=== PATIENT | male | born 2005 | race Caucasian/White ===

== ENCOUNTER 2024-05-25 18:21 | Emergency (ER) | payer BC, SELFPAY ==
[2024-05-25 18:21] VITALS: BP 129/93; PULSE 60; RESP 14; TEMP 36.2; O2SAT 97; BMI 26.6
[2024-05-25 18:27] VITALS: O2SAT 98
--- NOTE | 2024-05-25 18:37 | EDS_ITS ---
HPI History of Present Illness Chief Complaint: Head Injury Detail of Chief Complaint: Head injury Informant: patient Narrative Narrative: Patient presents to the emergency department concerned about head injury. Patient states that he was playing basketball 2 weeks ago and took a shoulder to the head while playing. Did not have loss of consciousness. Did not think much of it. He continued to play. Patient then 10 days ago was playing basketball again with another individual and was elbowed in the head. No again no loss of consciousness. Subsequently started having some symptoms of some trouble concentrating. Last night he had a hard time sleeping. Complains of some photophobia. Patient just states that something feels off and he does not feel right. Has had no vomiting. Patient was seen by his primary care physician yesterday and was told that he may have concussion. No imaging is been performed. [facility] Medications ?Medication ?Instructions ?Recorded ?Last Taken ?Type pediatric multivitamin no.42 1 ea PO DAILY 04/17/14 Unknown History (Children's Multivitamin chewable tablet) Allergy/AdvReac Type Severity Reaction Status Date / Time No Known Allergies Allergy Verified 05/25/24 18:22 Social History Smoking Status: Never smoker ROS ROS ED ROS Narrative Head injury Review of Systems ROS Unobtainable: other Constitutional Constitutional ED: Reports lethargy; Denies chills, fever(s), sweats or weight loss Eyes Eyes: Denies blurry vision, change in vision or diplopia ENT ENT ED: Denies rhinorrhea or sore throat Cardiovascular Cardiovascular: Denies chest pain, orthopnea or racing heartbeat Respiratory/Chest Respiratory/Chest: Denies cough, dyspnea, dyspnea on exertion, orthopnea or sputum Gastrointestinal Gastrointestinal: Denies abdominal pain, diarrhea, nausea or vomiting Genitourinary Genitourinary ED: Denies dysuria, hematuria or urinary frequency Musculoskeletal Musculoskeletal: Denies arthralgias, back pain, myalgias or neck pain Integumentary Denies abscess, Abrasions or rash Neurologic Neurologic: Reports headache(s); Denies weakness Psychiatric Psychiatric: Denies anxiety, depression or suicidal thoughts Endocrine Endocrinology: Denies polydipsia, polyphagia or polyuria Hematologic/Lymphatic Hematologic/Lymphatic: Denies easy bleeding, easy bruising or lymphadenopathy Allergic/Immunologic Allergic/Immunologic ED: Denies mouth swelling, tongue swelling or urticaria EXAM Physical Exam Const Vital Signs: 05/25/24 18:21 05/25/24 18:27 Temperature 97.2 F L Temperature Source Temporal Pulse Rate 60 Respiratory Rate 14 Respiratory Effort Normal Respiratory Depth Normal Blood Pressure 129/93 H Blood Pressure Mean 105 Pulse Ox 97 98 Oxygen Delivery Method Room Air Room Air Positive well nourished and well developed General Appearance ED: well developed and NAD HEENT Reports TM's clear and moist mucous membranes normocephalic and atraumatic; Negative for trauma or tenderness Tympanic Membrane ED: Yes TM's clear Eyes PERRL and EOMs intact bilaterally General Eye ED: Negative for pale conjunctiva or scleral icterus Neck no lymphadenopathy, supple and no JVD General: Negative for tenderness Chest Wall inspection of chest normal and palpation of chest normal Chest: Negative for tenderness Resp normal respiratory effort and clear to auscultation bilaterally Effort and Inspection: Negative for respiratory distress or pain with movement Auscultation: Negative for rhonchi, wheezes or diminished lung sounds Cardio regular rate, regular rhythm, S1 normal heart sound, S2 normal heart sound and no murmurs Peripheral Pulses: pulses 2+ throughout GI normal to inspection, nondistended, normoactive bowel sounds, soft to palpation, non-tender, non-distended and no masses Back/Spine no CVA tenderness and no thoracic nor lumbar tenderness Extremity normal to inspection General Extremety ED: Negative for edema General Extremity: Negative for edema Neuro oriented x3, CN's II-XII intact bilaterally, no sensory deficits noted and gait normal Sensorium / Orientation: awake, alert, oriented to person, oriented to place and oriented to time Motor Exam: strength 5/5 throughout and strength abnormal Psych mental status grossly normal Skin no rashes or lesions noted and no wounds MDM MDM MDM Narrative Medical decision making narrative: CT scan of the brain without contrast that was unremarkable. At this point suspect postconcussive syndrome. Advised to follow-up with primary care physician in 7 to 10 days. Advised to avoid repeat head injury. Patient presents with 2 head injuries. Does not feel well and does not feel right. His neuroexam is normal. Do not see any evidence of trauma to his head currently. I suspect likely concussion. However patient still continues to be quite symptomatic. Will obtain a CT scan of the brain to evaluate further. Radiography Diagnostic Testing: Clinical Impression(s) from Imaging Studies Brain CT 05/25/24 18:42 IMPRESSION: Normal unenhanced CT scan of the brain. Electronically Signed: Tomas Aguilar MD at 19:11 EDT , Discharge Plan Triage Chief Complaint: Head Injury ED Provider: Lenka Canales Dx/Rx/DC Orders Clinical Impression: Concussion syndrome Instructions: Coping with Concussion, ED Concussion Prescriptions: No Action pediatric multivitamin no.42 [Children's Multivitamin] 1 EACH tablet,chewable 1 ea PO DAILY Primary Care Provider: Jf Mcclelland Referrals: Jf Mcclelland MD [Primary Care Provider] - 5-7 Days Print Language: French Disposition Disposition: Home, Self Care
--- NOTE | 2024-05-25 18:42 | CT_ITS ---
STUDY: CT BRAIN WITHOUT CONTRAST REASON FOR EXAM: Male, 18 years old. head injury RADIATION DOSAGE (If Supplied By Facility): CTDIvol = ( 44.99 ) mGy, DLP = ( 812.98 ) mGycm TECHNIQUE: Transaxial CT imaging of the brain was performed without administration of intravenous contrast material. Individualized dose optimization techniques were used for this CT. COMPARISON: No relevant priors. FINDINGS: Normal soft tissue structures. Normal calvarium. Normal size ventricles and extra-axial spaces for the patient''s age. Normal white matter tracts of the cerebral hemispheres. Normal basal ganglia and thalami. Normal brainstem. Normal cerebellum. There is no intracranial hemorrhage. There are no findings of an acute ischemic infarction. Normal visualized paranasal sinuses. CT/Brain/Head without Contrast IMPRESSION: Normal unenhanced CT scan of the brain. Electronically Signed: Tomas Aguilar MD at 19:11 EDT ,
[2024-05-25 19:26] VITALS: BP 121/73; PULSE 91; RESP 14; TEMP 35.5; O2SAT 100
== END 2024-05-25 19:32 | disposition home or self-care (01) ==
PROVIDERS: Emergency Provider Emergency Medicine; PCP Pediatrics; Visit Provider Emergency Medicine
DX: S09.90XA Unspecified injury of head, initial encounter (principal); F07.81 Postconcussional syndrome; Y93.67 Activity, basketball
CPT/HCPCS: 70450; 99282